=== PATIENT | female | born 1990 | race Caucasian/White ===

== ENCOUNTER 2017-04-14 13:12 | Emergency (ER) | payer MEDICAID ==
--- NOTE | 2017-04-14 16:12 | ED Physician Chart ---
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 she has wound of rt hand x sev weeks. pt was using drill press to make a knife and uct along her rt medial index finger. shee notes pain now at same area and a soft lump at middle phalyx. can bend finger but w pain. never had medical tx. finger wound is much smaller now but still keeps cracking open. no fever. no pus. Allergies:: Allergies Allergy/AdvReac Type Severity Reaction Status Date / Time No Known Allergies Allergy Verified 11/10/16 17:41 Vitals:: Vital Signs - 8 hr 04/14/17 13:16 Temp 98.3 F HR 94 RR 19 BP 139/85 O2 Sat % 99 Historian:: Patient Review of Systems - Review of Systems General/Constitutional: No fever, No chills, No weight loss, No weakness, No diaphoresis, No edema, No loss of appetite Skin: No skin lesions, No rash, No bruising Head: No headache, No light-headedness Eyes: No loss of vision, No pain, No diplopia ENT: No earache, No nasal drainage, No sore throat, No tinnitus Neck: No neck pain, No swelling, No thyromegaly, No stiffness, No mass noted Cardio Vascular: No chest pain, No palpitations, No PND, No orthopnea, No edema Pulmonary: No SOB, No cough, No sputum, No wheezing GI: No nausea, No vomiting, No diarrhea, No pain, No melena, No hematochezia, No constipation, No hematemesis G/U: No dysuria, No frequency, No hematuria Musculoskeletal: No bone or joint pain, No back pain, No muscle pain, Other (rt 2nd finger pain) Endocrine: No polyuria, No polydipsia Psychiatric: No prior psych history, No depression, No anxiety, No suicidal ideation Hematopoietic: No bruising, No lymphadenopathy Allergic/Immuno: No urticaria, No angioedema Neurological: No syncope, No focal symptoms, No weakness, No paresthesia, No headache, No seizure, No dizziness, No confusion, No vertigo Past Medical History - Past Medical History Past Medical History: No significant medical hx 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) Medication: Reviewed Family Medical History - Family Member Daughter History Unknown: Yes Living Status: Still Living Other Medical History: mom -lupus Physical Exam - Physical Examination General/Constitutional: Awake, Well-developed, well-nourished, Alert, No distress, GCS 15, Non-toxic appearing, Ambulatory Head: Atraumatic Eyes: Lids, conjuctiva normal, PERRL, EOMI Skin: Nl inspection, No rash, No skin lesions, No ecchymosis, Well hydrated, No lymphadenopathy ENMT: External ears, nose nl, Nasal exam nl, Lips, teeth, gums nl Neck: Nontender, Full ROM w/o pain, No JVD, No nuchal rigidity, No bruit, No mass, No stridor Respiratory: Nl effort/Exclusion, Clear to Auscultation, No Wheeze/Rhonchi/Rales Cardio Vascular: RRR, No murmur, gallop, rubs, NL S1 S2 GI: No tenderness/rebounding/guarding, No organomegaly, No hernia, Normal BS's, Nondistended, No mass/bruits, No McBurney tenderness : No CVA tenderness Extremities: No tenderness or effusion, Full ROM, normal strength in all extremities, No edema, Normal digits & nails Other Extremities comments:: rt index finger has a scab at medial base/insertion to hand. no red, no pus. no red streaks. pt can bend finger tip a bit but w pain. there is a soft gummy nodular mass at mid volar mid-phalynx...could be gang cyst or ruptured tendon. cap refill brisk. sens ok. Neuro/Psych: Alert/oriented, DTR's symmetric, Normal sensory exam, Normal motor strength, Judgement/insight normal, Mood normal, Normal gait, No focal deficits Misc: normal gait, Normal back, No paraspinal tenderness Labs/Radiology/EKG Results - Radiology Results Results: xray rt 2nd finger no fx. no f.b. ED Septic Shock - . Is Septic Shock (SBP<90, OR Lactate>4 mmol\L) present?: No - <6hrs of presentation: Vital Signs: Vital Signs - 8 hr 04/14/17 13:16 Temp 98.3 F HR 94 RR 19 BP 139/85 O2 Sat % 99 Reassessment (Disposition) - Reassessment Reassessment Condition:: Improved - Diagnosis Diagnosis:: 1 rt index finger injury..suspect profundus flexor tendon rupture and/or ganglion cyst. - Aftercare/Follow up Instructions Aftercare/Follow-Up Instructions:: Counseled pt regarding lab results/diagnosis & need follow up Notes:: pt to use tylenol for pain. bactroban ointment. keep covered at work. see hand surgeon for advice regarding tendon injury. - Patient Disposition Discharge/Transfer:: Home Condition at Disposition:: Improved
--- NOTE | 2017-04-15 11:18 | Diagnostic Imaging Report ---
Left index finger (3 views) HISTORY: Pain, trauma No acute bony abnormalities. No fractures. Joint spaces appear normal. There is a punctate radiodensity within the soft tissues adjacent to the anterior aspect of the metacarpal phalangeal joint. Findings may be associated with a foreign body. IMPRESSION: 1. Punctate density within the soft tissues adjacent to the anterior aspect of the metacarpal phalangeal joint. Changes may be related to a foreign body. Clinical correlation is needed. 2. No definite acute focal bony abnormalities
== END 2017-04-14 16:50 | disposition home or self-care (01) ==
LOC: ER 13:12
DX: S69.91XA Unspecified injury of right wrist, hand and finger(s), initial encounter (principal); X58.XXXA Exposure to other specified factors, initial encounter; Y93.89 Activity, other specified; Y92.89 Other specified places as the place of occurrence of the external cause; Y99.8 Other external cause status
CPT/HCPCS: 73140-TC-F1; 81025-TC; Z7502

== ENCOUNTER 2017-07-28 21:11 | Emergency (ER) | payer MEDICAID ==
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
--- NOTE | 2017-07-29 08:09 | Diagnostic Imaging Report ---
Lumbar spine (3 views) HISTORY: Pain, trauma Alignment is normal. Disc spaces are maintained. No focal bony lesions. No fractures. IMPRESSION: No acute abnormalities
== END 2017-07-28 23:55 | disposition home or self-care (01) ==
LOC: ER 21:11
DX: S39.012A Strain of muscle, fascia and tendon of lower back, initial encounter (principal); X58.XXXA Exposure to other specified factors, initial encounter; Y93.89 Activity, other specified; Y92.89 Other specified places as the place of occurrence of the external cause; Y99.8 Other external cause status
CPT/HCPCS: 72100-TC; 81025-TC; Z7502

== ENCOUNTER 2019-06-04 18:17 | Emergency (ER) | payer MEDICAID ==
--- NOTE | 2019-06-04 18:49 | ED Physician Chart ---
ED Chief Complaint/HPI - Patient Information Date Seen:: 06/04/19 Time Seen:: 18:45 Chief Complaint:: eye pain History of Present Illness:: 28 yr old female with eye pain amy rt eye with pain reddness some discharge Allergies:: Allergies Allergy/AdvReac Type Severity Reaction Status Date / Time No Known Allergies Allergy Verified 11/10/16 17:41 Vitals:: Vital Signs - 8 hr 06/04/19 18:39 Temp 98.4 F HR 81 RR 17 BP 106/62 O2 Sat % 97 ED Review of Systems - Review of Systems General/Constitutional: No fever, No chills, No weight loss, No weakness, No diaphoresis, No edema, No loss of appetite Skin: No skin lesions, No rash, No bruising Head: No headache, No light-headedness Eyes: Pain ENT: No earache, No nasal drainage, No sore throat, No tinnitus Neck: No neck pain, No swelling, No thyromegaly, No stiffness, No mass noted Cardio Vascular: No chest pain, No palpitations, No PND, No orthopnea, No edema Pulmonary: No SOB, No cough, No sputum, No wheezing GI: No nausea, No vomiting, No diarrhea, No pain, No melena, No hematochezia, No constipation, No hematemesis G/U: No dysuria, No frequency, No hematuria Musculoskeletal: No bone or joint pain, No back pain, No muscle pain Endocrine: No polyuria, No polydipsia Psychiatric: No prior psych history, No depression, No anxiety, No suicidal ideation Hematopoietic: No bruising, No lymphadenopathy Allergic/Immuno: No urticaria, No angioedema Neurological: No syncope, No focal symptoms, No weakness, No paresthesia, No headache, No seizure, No dizziness, No confusion, No vertigo ED Past Medical History - Past Medical History Past Medical History: No significant medical hx Family Medical History - Family Member Daughter History Unknown: Yes Living Status: Still Living ED Physical Exam - Physical Examination General/Constitutional: Awake, Well-developed, well-nourished, Alert, No distress, GCS 15, Non-toxic appearing, Ambulatory Head: Atraumatic Eyes: PERRL, EOMI Other Eyes comments:: rt eye lid swelling Skin: No ecchymosis, Well hydrated, No lymphadenopathy ENMT: External ears, nose nl, Nasal exam nl, Lips, teeth, gums nl Neck: Nontender, Full ROM w/o pain, No JVD, No nuchal rigidity, No bruit, No mass, No stridor Respiratory: Nl effort/Exclusion, Clear to Auscultation, No Wheeze/Rhonchi/Rales Cardio Vascular: RRR, No murmur, gallop, rubs, NL S1 S2 GI: No tenderness/rebounding/guarding, No organomegaly, No hernia, Normal BS's, Nondistended, No mass/bruits, No McBurney tenderness : No CVA tenderness Extremities: No tenderness or effusion, Full ROM, normal strength in all extremities, No edema, Normal digits & nails Neuro/Psych: Alert/oriented, DTR's symmetric, Normal sensory exam, Normal motor strength, Judgement/insight normal, Mood normal, Normal gait, No focal deficits Misc: Normal back, No paraspinal tenderness ED Assessment - Assessment General Assessment: rt eye pain possible conjunctivitis ED Septic Shock - . Is Septic Shock (SBP<90, OR Lactate>4 mmol\L) present?: No - <6hrs of presentation: Vital Signs: Vital Signs - 8 hr / 18:39 Temp 98.4 F HR 81 RR 17 BP 106/62 O2 Sat % 97 ED Reassessment (Disposition) - Reassessment Reassessment:: rt eye pain possible conjunctivitis - Diagnosis Diagnosis:: as above - Patient Disposition Discharge/Transfer:: Home Condition at Disposition:: Stable
== END 2019-06-04 19:03 | disposition home or self-care (01) ==
LOC: ER 18:17
DX: H57.11 Ocular pain, right eye (principal)
CPT/HCPCS: Z7502